=== PATIENT | male | born 1965 | race Caucasian/White ===

== ENCOUNTER 2023-07-27 06:15 | Emergency (ER) | payer SELFPAY ==
[2023-07-27 06:29] VITALS: BMI 31.4
[2023-07-27] MEDS: SODIUM CHLORIDE 0.9% 500 ML INFUS.BAG IV ONE (07:03)
[2023-07-27] MEDS: ACETAMINOPHEN 1000 MG/100 ML BAG IVPB ONE (07:03)
[2023-07-27 07:09] LABS: BASO % 0.5 % (0-2.0); EOS % 0.5 % (0-4.5); LYMPH % 9.9 % (8-40); MCH 32.3 pg (25.7-33.7); MCHC 34.9 g/dl (32.0-35.9); MEAN CELL VOLUME 92.5 fl (80-96); MEAN PLT VOLUME 9.3 fl (7.5-11.1); NEUT % 83.1 % (42.8-82.8); PLATELET COUNT 228 10^3/uL (134-434); RBC 4.65 M/mm3 (4.00-5.60); RDW 13.6 % (11.9-15.9); WHITE BLOOD COUNT 17.5 K/mm3 (4.0-10.0)
[2023-07-27 08:30] LABS: ALBUMIN 3.9 g/dl (3.4-5.0); BILIRUBIN,TOTAL 0.8 mg/dL (0.2-1); BLOOD UREA NITROGEN 20.6 mg/dL (7-18); CALCIUM 9.3 mg/dL (8.5-10.1); CREATININE 1.7 mg/dL (0.55-1.3); MAGNESIUM 1.7 mg/dL (1.8-2.4); POTASSIUM 4.2 mmol/L (3.5-5.1); TOT PROT 7.3 g/dl (6.4-8.2)
[2023-07-27] MEDS: FAMOTIDINE 20 MG/50 ML IVPB 20 MG/50 ML MG IVPB ONE (08:45)
[2023-07-27] MEDS: MAGNESIUM SULF 50% (8.12 MEQ/2 ML-1 GM VIAL) IVPB ONE (08:50)
[2023-07-27] MEDS ORDERED: MAGNESIUM SULFATE IN WATER 2 GM/50 ML IVPB IVPB ONE (09:02)
[2023-07-27] MEDS ORDERED: FAMOTIDINE 20 MG/50 ML IVPB 20 MG/50 ML MG IVPB ONE (09:02)
[2023-07-27] MEDS ORDERED: morphine SULFATE 4 MG/ML VIAL ONE (09:02)
[2023-07-27] MEDS: morphine SULFATE 4 MG/ML VIAL IVPUSH ONE (09:25)
[2023-07-27 12:52] LABS: PH,URINE 5.5 (5.0-8.0); URINE APPEARANCE CLEAR; URINE BILIRUBIN NEGATIVE (NEGATIVE); URINE COLOR YELLOW; URINE GLUCOSE (UA) 3+ (NEGATIVE); URINE KETONE NEGATIVE (NEGATIVE); URINE LEUK ESTERASE NEGATIVE (NEGATIVE); URINE NITRITE NEGATIVE (NEGATIVE); URINE PROTEIN TRACE (NEGATIVE); URINE UROBILINOGEN 0.2 mg/dL (0.2-1.0)
[2023-07-27 14:54] VITALS: BP 120/70; PULSE 78; RESP 16; TEMP 98.2
== END 2023-07-27 14:45 | disposition home or self-care (01) ==
LOC: JER 06:15
PROC: 3E033GC Introduction of Other Therapeutic Substance into Peripheral Vein, Percutaneous Approach (ICD-10-PCS; principal; 2023-07-27)
PROC: 3E033NZ Introduction of Analgesics, Hypnotics, Sedatives into Peripheral Vein, Percutaneous Approach (ICD-10-PCS; 2023-07-27)
PROC: 3E033GC Introduction of Other Therapeutic Substance into Peripheral Vein, Percutaneous Approach (ICD-10-PCS; 2023-07-27)
PROC: 3E033GC Introduction of Other Therapeutic Substance into Peripheral Vein, Percutaneous Approach (ICD-10-PCS; 2023-07-27)
DX: R10.32 Left lower quadrant pain (principal); N20.0 Calculus of kidney; R68.2 Dry mouth, unspecified; R19.12 Hyperactive bowel sounds
CPT/HCPCS: 36415; 74018-TC-FY; 74176-TC; 80053; 81003; 83605; 83690; 83735; 84484; 85025; 87086; 93005; 93010; 99285-25; J0131